=== PATIENT | female | born 1945 | race Caucasian/White ===

== ENCOUNTER 2017-07-05 10:32 | Emergency (ER) | payer SELFPAY ==
[~2017-07-05] VITALS: Ht 167.6 cm; Wt 83.9 kg
[2017-07-05 10:55] VITALS: BP 141/88
[2017-07-05] MEDS ORDERED: Dicyclomine HCl 10mg/5ml oral soln ORAL ONE ×2 (11:15)
[2017-07-05 11:35] LABS: BASOPHILS % (AUTO) 1.1 % (0.0-2.0); EOSINOPHILS % (AUTO) 0.1 % (0.0-3.0); HEMATOCRIT 39.7 % (37.0-47.0); HEMOGLOBIN 12.9 G/DL (12.0-16.0); LYMPHOCYTES % (AUTO) 15.1 % (20.0-45.0); MEAN CORPUSCULAR VOLUME 85 FL (80-99); MONOCYTES % (AUTO) 9.6 % (1.0-10.0); NEUTROPHILS % (AUTO) 74.2 % (45.0-75.0); PLATELET COUNT 196 K/UL (150-450); RED BLOOD COUNT 4.67 M/UL (4.20-5.40); RED CELL DISTRIBUTION WIDTH 11.6 % (11.6-14.8); WHITE BLOOD COUNT 9.5 K/UL (4.8-10.8)
[2017-07-05 11:39] LABS: APPEARANCE,URINE CLEAR; BILIRUBIN, URINE 1+ (NEGATIVE); GLUCOSE, URINE (UA) NEGATIVE (NEGATIVE); KETONES,URINE 3+ (NEGATIVE); LEUKOCYTE ESTERASE ,URINE 2+ (NEGATIVE); NITRITE,URINE NEGATIVE (NEGATIVE); PH,URINE 5 (4.5-8.0); PROTEIN,URINE 3+ (NEGATIVE); UROBILINOGEN,URINE 1 MG/DL (0.0-1.0)
[2017-07-05 11:41] LABS: COLOR,URINE YELLOW
[2017-07-05 11:44] LABS: ANION GAP 9 mmol/L (5-15); BLOOD UREA NITROGEN 14 mg/dL (7-18); CALCIUM 8.9 MG/DL (8.5-10.1); CARBON DIOXIDE 29 MMOL/L (21-32); CHLORIDE 100 MMOL/L (98-107); POTASSIUM 3.7 MMOL/L (3.5-5.1); SODIUM 138 MMOL/L (136-145)
[2017-07-05 11:48] LABS: ALANINE AMINOTRANSFERASE 30 U/L (12-78); ALBUMIN 3.4 G/DL (3.4-5.0); ALBUMIN/GLOBULIN RATIO 0.8 (1.0-2.7); ALKALINE PHOSPHATASE 62 U/L (46-116); ASPARTATE AMINO TRANSFERASE 22 U/L (15-37); BILIRUBIN,TOTAL 0.5 MG/DL (0.2-1.0)
[2017-07-05] MEDS ORDERED: BENTYL10 MG ORAL (14:06)
[2017-07-05] MEDS ORDERED: CIPROFLOXACIN500 M2 ORAL (14:06)
--- NOTE | 2017-07-05 14:13 | Emergency Room Report ---
History of Present Illness General Chief Complaint: Nausea, Vomiting, and Diarrhea Source: Patient Present Illness Allergies: Coded Allergies: No Known Allergies (Unverified , 07/05/17) Nursing Documentation-H Past Medical History: No History, Except For Hx Hypertension: Yes Hx Pacemaker: Yes Physical Exam Vital Signs Date Time Temp Pulse Resp B/P (MAP) Pulse Ox O2 Delivery O2 Flow Rate FiO2 07/05/17 10:38 99.0 66 18 141/88 95 Room Air Medical Decision Making Diagnostic Impression: Primary Impression: Colitis presumed infectious ER Course Patient with serial exams showing no tenderness She had no diarrheal episodes here Urinalysis showed mild UTI CT scan showed evidence of nonspecific colitis Diverticulosis and gallstones without evidence of infection Patient will be given 3 days of Cipro 500 twice a day 4 infectious colitis I do not suspect ischemic colitis, given the patient's normal CO2 and anion gap She has not been on antibiotics so I do not suspect C. difficile She understands to return to the ER for recurrent abdominal pain, fevers, or any new symptoms CT/MRI/US Diagnostic Results CT/MRI/US Diagnostic Results : Imaging Test Ordered: CT abdomen and pelvis Impression Gallstones diverticulosis but no infection + colitis, nonspecific Last Vital Signs Date Time Temp Pulse Resp B/P (MAP) Pulse Ox O2 Delivery O2 Flow Rate FiO2 07/05/17 10:55 99.0 66 18 141/88 95 Room Air Status: improved Disposition: HOME, SELF-CARE Condition: Improved Scripts Dicyclomine Hcl* (BENTYL*) 10 Mg Capsule 10 MG ORAL FOUR TIMES A DAY for 3 Days, #12 CAP Prov: ALICIA JOHN M.D 07/05/17 Ciprofloxacin Hcl* (CIPROFLOXACIN HCL*) 500 Mg Tablet 500 MG ORAL Q12H for 3 Days, #6 TAB 0 Refills Prov: ALICIA JOHN M.D 07/05/17 Patient Instructions: Diarrhea, Adult ALICIA JOHN M.D Jul 05, 2017 14:13
[2017-07-05 14:27] VITALS: BP 138/82
[2017-07-05 14:46] VITALS: BP 138/82
--- NOTE | 2017-07-05 16:58 | Diagnostic Imaging Report ---
Clinical Indication: Abdominal pain Technique: No oral contrast utilized, per emergency room physician request IV administration nonionic contrast. Venous phase spiral acquisition obtained through the abdomen and pelvis. Multiplanar reconstructions were generated. Total dose length product 944.75 mGycm. CTDIvol(s) 18.16 mGy. Dose reduction achieved using automated exposure control Comparison: none Findings: . There is colonic diverticulosis. No evidence of acute diverticulitis. There is mild wall thickening of the cecum and proximal ascending colon with a slight degree of stranding of the surrounding fat. There is equivocal minimal wall thickening of the transverse colon. The appendix is normal. No small bowel distention. No free or loculated intraperitoneal air or fluid is evident. There is a small fat-containing central ventral hernia. The liver is unremarkable. The gallbladder contains some gallstones. No biliary ductal dilatation. The pancreas is somewhat atrophic. The spleen, adrenals, kidneys are unremarkable. No renal or ureteral calculi, hydronephrosis, or hydroureter. The bladder, uterus, adnexal structures are unremarkable. The included lung bases demonstrate some lateral basilar atelectasis on the right. Pacemaker wires are seen within the heart. The bones demonstrate degenerative spondylosis changes. Dense material centrally within the L1-2 disc may indicate prior discography. Impression: Wall thickening of the ascending colon with surrounding mild fat stranding, consistent with colitis, nonspecific as regards etiology. There may also be some involvement of the transverse colon Cholelithiasis Incidental findings as noted, including possible prior L1-2 discogram, degenerative spondylosis, pacemaker, basilar pulmonary atelectasis, atrophic pancreas, small fat-containing ventral hernia Colonic diverticulosis This agrees with the preliminary interpretation provided overnight by Dr. Farley The CT scanner at [facility] is accredited by the [employer] and the scans are performed using protocols designed to limit radiation exposure to as low as reasonably achievable to attain images of sufficient resolution adequate for diagnostic evaluation.
== END 2017-07-05 14:48 | disposition home or self-care (01) ==
LOC: EMR 11:10
DX: K52.9 Noninfective gastroenteritis and colitis, unspecified (principal); K57.30 Diverticulosis of large intestine without perforation or abscess without bleeding; I10 Essential (primary) hypertension; Z95.0 Presence of cardiac pacemaker; K80.20 Calculus of gallbladder without cholecystitis without obstruction
CPT/HCPCS: 36415; 74177; 80053; 81003; 83690; 85025; 87086; 87181; 96374; 96375; 99284; J2405; Q9967